=== PATIENT | male | born 1985 | race Caucasian/White ===

== ENCOUNTER 2021-07-06 05:09 | Inpatient (IN) | payer MEDICAID, SELFPAY ==
[~2021-07-06] VITALS: Ht 180.3 cm; Wt 69.7 kg
--- NOTE | 2021-07-06 06:38 | NUR ---
catering cook: patient to room from lobby.
--- NOTE | 2021-07-06 06:40 | NUR ---
TO ROOM 19. CARE ASSUMED AT THIS TIME.
--- NOTE | 2021-07-06 06:57 | NUR ---
REPORT GIVEN TO HIRAM GARCIA. CARE TRANSFERED.
[2021-07-06] MEDS ORDERED: HYDROmorphone 2 MG/ML, 1ML ONE ×4 (07:27→14:01)
[2021-07-06] MEDS ORDERED: SODIUM CHLORIDE FLUSH 10ML SYR IVF ONE (07:30)
[2021-07-06] MEDS ORDERED: HYDROmorphone 2 MG/ML, 1ML IVPush ONE (07:30)
[2021-07-06 07:44] LABS: MEAN CORPUSCULAR HEMOGLOBIN 27.7 pg (27.5-34.5); MEAN CORPUSCULAR HGB CONC 33.8 g/dL (33.2-36.2); MEAN PLATELET VOLUME 7.6 fL (7.4-10.4); PLATELET COUNT 395 x10^3/uL (130-400); RED CELL DISTRIBUTION WIDTH 14.7 % (9.4-14.8)
[2021-07-06 07:55] LABS: ALANINE AMINOTRANSFERASE 13 U/L (12-78); ALBUMIN 2.7 g/dL (3.4-5.0); ANION GAP 6 mmol/L (5-15); CALCIUM 9.1 mg/dL (8.5-10.1); CHLORIDE 101 mmol/L (98-107); CREATININE 0.57 mg/dL (0.7-1.3)
[2021-07-06 07:57] LABS: ALKALINE PHOSPHATASE 130 U/L (45-117); BILIRUBIN,TOTAL 0.8 mg/dL (0.2-1.0); TOTAL PROTEIN 8.3 g/dL (6.4-8.2)
[2021-07-06 08:15] LABS: <RBC MORPHOLOGY> NORMAL; BAND#(MANUAL) 0.93 x10^3/uL; BANDS%(MANUAL) 3 % (0-7); LYMPH#(MANUAL) 2.47 x10^3/uL (1-3.4); LYMPHS% (MANUAL) 8 % (22-44); MONOS#(MANUAL) 0.62 x10^3/uL (0.3-2.7); MONOS% (MANUAL) 2 % (2-9); SEG#(MANUAL) 26.88 x10^3/uL (1.8-6.8); SEGS% (MANUAL) 87 % (42-75)
[2021-07-06 08:16] LABS: <PLATELET ESTIMATE> ADEQUATE; <PLT MORPHOLOGY> NORMAL PLT MORPH
[2021-07-06] MEDS ORDERED: HYDROmorphone 1 MG/ML, 1ML INJ IV ONE ×2 (09:00→12:00)
[2021-07-06] MEDS ORDERED: PLEASE ENTER MEASURED WEIGHT MC SCH (09:00)
[2021-07-06] MEDS ORDERED: SODIUM CHLORIDE 0.9% 1,000ML IVBOLUS ONE ×2 (09:00→16:00)
[2021-07-06] MEDS ORDERED: VANCOMYCIN PER PHARMACY MC ONE (09:00)
[2021-07-06] MEDS ORDERED: HYDROmorphone 1 MG/ML, 1ML INJ IVPush PRN (09:00)
[2021-07-06] MEDS ORDERED: PIPERACILLIN/TAZO 3.375 GM in DEXTROSE 5% 50 ML IVPB ONE (09:00)
--- NOTE | 2021-07-06 09:09 | NUR ---
Triage edited to add accurate weight.
--- NOTE | 2021-07-06 09:23 | NUR ---
Awaiting BC draw to start abx.
--- NOTE | 2021-07-06 09:31 | NUR ---
This RN touched base with lab about BC draw. Lab back to bedside.
--- NOTE | 2021-07-06 09:50 | NUR ---
Fluids paused while abx infusing.
--- NOTE | 2021-07-06 09:53 | NUR ---
Pt to MRI.
[2021-07-06] MEDS ORDERED: SODIUM CHLORIDE FLUSH 10ML SYR IVF PRN (10:00)
[2021-07-06] MEDS ORDERED: SODIUM CHLORIDE 0.9% 1,000 ML IV ONE (10:00)
[2021-07-06 10:06] LABS: HCT (SEDRATE) 34.1 % (39.2-51.8)
[2021-07-06] MEDS ORDERED: VANCOMYCIN 1,500 MG in SODIUM CHLORIDE 0.9% 250 ML IV ONE (10:30)
[2021-07-06] MEDS ORDERED: DIAZEPAM 5 MG/ML, 2ML IV ONE (10:30)
[2021-07-06] MEDS ORDERED: DIAZEPAM 5 MG/ML, 2ML ONE (10:34)
--- NOTE | 2021-07-06 10:47 | NUR ---
Pt returned from MRI without imaging r/t claustrophobia, pt medicated per jan. Pt to MRI with all belongings, to go to room 449 after imaging complete.
--- NOTE | 2021-07-06 10:50 | NUR ---
Report to HIRAM Arnold.
[2021-07-06 11:09] LABS: AMPHETAMINE SCREEN, URINE Positive (Negative); BARBITURATE SCREEN, URINE Negative (Negative); BENZODIAZEPINE SCREEN, URINE Negative (Negative); CANNABINOID SCREEN, URINE Negative (Negative); COCAINE SCREEN, URINE Negative (Negative); METHADONE SCREEN, URINE Negative (Negative); OPIATE SCREEN, URINE Positive (Negative)
[2021-07-06] MEDS ORDERED: HYDROmorphone 1 MG/ML, 1ML INJ IM ONE (12:00)
[2021-07-06] MEDS ORDERED: ONDANSETRON ODT 4 MG PO PRN (13:30)
[2021-07-06] MEDS ORDERED: ONDANSETRON 2MG/ML, 2ML IVPush PRN (13:30)
[2021-07-06] MEDS ORDERED: VANCOMYCIN PER PHARMACY MC PRN (13:30)
[2021-07-06] MEDS ORDERED: POLYETHYLENE GLYCOL 17 GM PACKET PO PRN (13:30)
[2021-07-06] MEDS ORDERED: PHARMACOKINETIC CONSULTATION MC ONE (14:00)
[2021-07-06] MEDS: ENOXAPARIN 40 MG/0.4 ML SQ SCH (14:00)
[2021-07-06] MEDS ORDERED: PHARMACOKINETIC MONITORING MC PRN (14:00)
[2021-07-06] MEDS: HYDROmorphone 2 MG/ML, 1ML IVPush PRN ×5 (14:05→22:37)
[2021-07-06] MEDS: LACTATED RINGERS 1,000 ML IV SCH ×2 (14:06→20:10)
[2021-07-06] MEDS: PIPERACILLIN/TAZO 3.375 GM in DEXTROSE 5% 50 ML IV SCH ×2 (14:42→20:09)
[2021-07-06 14:44] VITALS: BP 113/69
[2021-07-06] MEDS: ACETAMINOPHEN 325 MG TABLET PO SCH ×2 (15:02→20:09)
[2021-07-06] MEDS ORDERED: DIPHENHYDRAMINE 50 MG/ML, 1ML ONE (15:21)
[2021-07-06] MEDS ORDERED: DIPHENHYDRAMINE 50 MG/ML, 1ML IVPush ONE (15:30)
[2021-07-06] MEDS ORDERED: methylPREDNISolone SOD SUCC 40 MG/ML IV ONE (15:30)
[2021-07-06] MEDS ORDERED: OMNIPAQUE 350 MG/ML, 100ML BOTTLE ONE (16:24)
[2021-07-06 19:33] VITALS: BP 113/65
[2021-07-06] MEDS ORDERED: BUPRENORPHINE/NALOXONE 8-2MG SL SCH (22:00)
[2021-07-06] MEDS: VANCOMYCIN 1,200 MG in SODIUM CHLORIDE 0.9% 250 ML IV SCH (23:49)
[2021-07-07 01:30] VITALS: BP 110/67
[2021-07-07] MEDS: PIPERACILLIN/TAZO 3.375 GM in DEXTROSE 5% 50 ML IV SCH ×4 (02:54→22:47)
[2021-07-07] MEDS: LACTATED RINGERS 1,000 ML IV SCH ×3 (03:00→21:09)
[2021-07-07] MEDS: HYDROmorphone 2 MG/ML, 1ML IVPush PRN ×5 (03:00→21:09)
[2021-07-07 05:26] LABS: MEAN CORPUSCULAR HEMOGLOBIN 27.5 pg (27.5-34.5); MEAN CORPUSCULAR HGB CONC 33.2 g/dL (33.2-36.2); MEAN PLATELET VOLUME 7.8 fL (7.4-10.4); PLATELET COUNT 371 x10^3/uL (130-400)
[2021-07-07 05:45] LABS: CHLORIDE 105 mmol/L (98-107)
[2021-07-07 05:52] LABS: ALANINE AMINOTRANSFERASE 11 U/L (12-78); ALBUMIN 2.1 g/dL (3.4-5.0); ALKALINE PHOSPHATASE 123 U/L (45-117); ANION GAP 7 mmol/L (5-15); BILIRUBIN,TOTAL 0.5 mg/dL (0.2-1.0); CALCIUM 9.1 mg/dL (8.5-10.1); CREATININE 0.47 mg/dL (0.7-1.3); TOTAL PROTEIN 7.6 g/dL (6.4-8.2)
[2021-07-07 06:03] LABS: BAND#(MANUAL) 1.57 x10^3/uL; BANDS%(MANUAL) 6 % (0-7); LYMPH#(MANUAL) 1.31 x10^3/uL (1-3.4); LYMPHS% (MANUAL) 5 % (22-44); METAMYELOCYTES# (MANUAL) 0.26 x10^3/uL (0-0); METAMYELOCYTES% (MANUAL) 1 % (0-1); SEG#(MANUAL) 22.97 x10^3/uL (1.8-6.8); SEGS% (MANUAL) 88 % (42-75)
[2021-07-07 06:04] LABS: <RBC MORPHOLOGY> NORMAL
[2021-07-07 06:05] LABS: <PLATELET ESTIMATE> ADEQUATE; <PLT MORPHOLOGY> NORMAL PLT MORPH
[2021-07-07] MEDS: SENNA/DOCUSATE TABLET PO SCH (08:19)
[2021-07-07] MEDS: ACETAMINOPHEN 325 MG TABLET PO SCH ×3 (08:19→21:08)
[2021-07-07 08:29] VITALS: BP 117/65
[2021-07-07] MEDS: VANCOMYCIN 1,200 MG in SODIUM CHLORIDE 0.9% 250 ML IV SCH (13:14)
[2021-07-07 13:20] VITALS: BP 105/61
[2021-07-07] MEDS: ENOXAPARIN 40 MG/0.4 ML SQ SCH (14:00)
[2021-07-07] MEDS ORDERED: CHLORHEXIDINE 15 ML UDC ONE (14:46)
[2021-07-07] MEDS ORDERED: CHLORHEXIDINE 15 ML UDC PO ONE (15:00)
[2021-07-07] MEDS ORDERED: MIDAZOLAM 1 MG/ML, 2ML ONE (15:28)
[2021-07-07] MEDS ORDERED: FENTANYL PF 250 MCG/5ML ONE ×2 (15:28→16:28)
[2021-07-07] MEDS ORDERED: LIDOCAINE-MPF 2% ,5ML ONE (15:30)
[2021-07-07] MEDS ORDERED: EPINEPHRINE 1 MG/ML, 1ML ONE (15:45)
[2021-07-07] MEDS ORDERED: BUPIVACAINE/PF 0.5% ONE (15:45)
[2021-07-07] MEDS ORDERED: KETOROLAC 30 MG/1 ML ONE (16:25)
[2021-07-07] MEDS ORDERED: ONDANSETRON 2MG/ML, 2ML ONE (16:26)
[2021-07-07] MEDS ORDERED: PROPOFOL 10 MG/ML, 20ML ONE (16:26)
[2021-07-07] MEDS ORDERED: DEXAMETHASONE 4 MG/ML, 1ML ONE (16:26)
[2021-07-07] MEDS ORDERED: VANCOMYCIN 1,000 MG ONE (16:41)
[2021-07-07] MEDS ORDERED: ACETAMINOPHEN 650 MG/20.3 ML UDC ONE (17:38)
[2021-07-07] MEDS ORDERED: HYDROmorphone 2 MG/ML, 1ML ONE ×2 (17:38→17:54)
[2021-07-07] MEDS ORDERED: OXYcodone 5 MG/5 ML ORAL.SOL UDC ONE (17:38)
[2021-07-07] MEDS: HYDROmorphone 1 MG/ML, 1ML INJ IVPush PRN ×5 (17:39→18:02)
[2021-07-07] MEDS ORDERED: ACETAMINOPHEN 325 MG TABLET PO PRN (18:00)
[2021-07-07] MEDS ORDERED: OXYcodone 5 MG/5 ML ORAL.SOL UDC PO PRN (18:00)
[2021-07-07] MEDS ORDERED: PROMETHAZINE 25 MG/ML, 1ML IVPush PRN (18:00)
[2021-07-07] MEDS ORDERED: FENTANYL PF 100 MCG/2ML IV PRN (18:00)
[2021-07-07 18:15] VITALS: BP 98/56
[2021-07-08 00:01] VITALS: BP 104/61
[2021-07-08] MEDS: VANCOMYCIN 1,200 MG in SODIUM CHLORIDE 0.9% 250 ML IV SCH ×3 (00:19→20:06)
[2021-07-08] MEDS: HYDROmorphone 2 MG/ML, 1ML IVPush PRN ×6 (00:51→22:51)
[2021-07-08 03:52] VITALS: BP 110/59
[2021-07-08] MEDS: PIPERACILLIN/TAZO 3.375 GM in DEXTROSE 5% 50 ML IV SCH ×4 (05:00→22:21)
[2021-07-08 07:15] VITALS: BP 115/69
[2021-07-08] MEDS: ACETAMINOPHEN 325 MG TABLET PO SCH ×3 (07:31→21:00)
[2021-07-08] MEDS: OXYcodone/APAP 5/325MG TABLET PO PRN ×4 (08:29→21:22)
[2021-07-08] MEDS: SENNA/DOCUSATE TABLET PO SCH (08:29)
[2021-07-08] MEDS: LACTATED RINGERS 1,000 ML IV SCH (08:29)
[2021-07-08] MEDS: BUPRENORPHINE HCL 2 MG TAB.SUBL SL SCH ×3 (10:52→21:44)
[2021-07-08] MEDS: NICOTINE 14MG/24 HR PATCH.TD24 TD SCH (10:53)
[2021-07-08 11:48] LABS: BASOPHILS % (AUTO) 0 % (0-1); EOSINOPHILS % (AUTO) 0 % (1-7); LYMPHOCYTES % (AUTO) 17 % (22-44); MEAN CORPUSCULAR HEMOGLOBIN 27.2 pg (27.5-34.5); MEAN CORPUSCULAR HGB CONC 32.9 g/dL (33.2-36.2); MEAN PLATELET VOLUME 7.4 fL (7.4-10.4); MONOCYTES % (AUTO) 5 % (2-9); NEUTROPHILS % (AUTO) 77 % (42-75); PLATELET COUNT 315 x10^3/uL (130-400); RED BLOOD COUNT 3.87 x10^6/uL (4.38-5.82)
[2021-07-08 11:59] LABS: ALANINE AMINOTRANSFERASE 9 U/L (12-78); ANION GAP 5 mmol/L (5-15); CALCIUM 8.2 mg/dL (8.5-10.1); CHLORIDE 108 mmol/L (98-107)
[2021-07-08 12:01] LABS: ALKALINE PHOSPHATASE 100 U/L (45-117); BILIRUBIN,TOTAL 0.3 mg/dL (0.2-1.0); CREATININE 0.58 mg/dL (0.7-1.3); TOTAL PROTEIN 6.5 g/dL (6.4-8.2)
[2021-07-08 12:27] VITALS: BP 111/61
[2021-07-08] MEDS: ENOXAPARIN 40 MG/0.4 ML SQ SCH (12:38)
[2021-07-08 20:03] VITALS: BP 101/61
[2021-07-08] MEDS ORDERED: BUPRENORPHINE HCL 2 MG TAB.SUBL SL SCH (21:00)
[2021-07-09 00:34] VITALS: BP 112/60
[2021-07-09] MEDS: HYDROmorphone 2 MG/ML, 1ML IVPush PRN ×2 (00:40→04:00)
[2021-07-09] MEDS: VANCOMYCIN 1,200 MG in SODIUM CHLORIDE 0.9% 250 ML IV SCH ×2 (03:31→12:23)
[2021-07-09] MEDS: PIPERACILLIN/TAZO 3.375 GM in DEXTROSE 5% 50 ML IV SCH ×3 (05:06→16:49)
[2021-07-09 06:33] LABS: BASOPHILS % (AUTO) 1 % (0-1); EOSINOPHILS % (AUTO) 1 % (1-7); LYMPHOCYTES % (AUTO) 34 % (22-44); MEAN CORPUSCULAR HEMOGLOBIN 27.9 pg (27.5-34.5); MEAN CORPUSCULAR HGB CONC 33.5 g/dL (33.2-36.2); MEAN PLATELET VOLUME 8.3 fL (7.4-10.4); MONOCYTES % (AUTO) 6 % (2-9); NEUTROPHILS % (AUTO) 59 % (42-75); PLATELET COUNT 252 x10^3/uL (130-400); RED BLOOD COUNT 4.13 x10^6/uL (4.38-5.82); RED CELL DISTRIBUTION WIDTH 14.6 % (9.4-14.8)
[2021-07-09 06:37] LABS: ANION GAP 6 mmol/L (5-15); CALCIUM 8.7 mg/dL (8.5-10.1); CHLORIDE 108 mmol/L (98-107); CREATININE 0.57 mg/dL (0.7-1.3)
[2021-07-09] MEDS: ACETAMINOPHEN 325 MG TABLET PO SCH ×3 (08:13→20:05)
[2021-07-09] MEDS: BUPRENORPHINE HCL 2 MG TAB.SUBL SL SCH ×3 (08:29→20:05)
[2021-07-09] MEDS: SENNA/DOCUSATE TABLET PO SCH (08:29)
[2021-07-09] MEDS: OXYcodone/APAP 5/325MG TABLET PO PRN ×3 (08:30→20:05)
[2021-07-09 09:42] VITALS: BP 110/69
[2021-07-09] MEDS ORDERED: HYDROmorphone 2 MG/ML, 1ML IM PRN (10:30)
[2021-07-09] MEDS: ENOXAPARIN 40 MG/0.4 ML SQ SCH (11:09)
[2021-07-09] MEDS: NICOTINE 14MG/24 HR PATCH.TD24 TD SCH (11:09)
[2021-07-09 12:17] VITALS: BP 107/62
[2021-07-09 18:55] VITALS: BP 101/63
[2021-07-09] MEDS: CEFAZOLIN PMX 1GM/50ML 50 ML IV SCH (19:21)
[2021-07-10 01:46] VITALS: BP 115/64
[2021-07-10] MEDS: OXYcodone/APAP 5/325MG TABLET PO PRN ×3 (01:46→10:46)
[2021-07-10] MEDS: CEFAZOLIN PMX 1GM/50ML 50 ML IV SCH ×2 (03:21→10:58)
[2021-07-10 06:28] VITALS: BP 113/72
[2021-07-10] MEDS: BUPRENORPHINE HCL 2 MG TAB.SUBL SL SCH (08:55)
[2021-07-10] MEDS: NICOTINE 14MG/24 HR PATCH.TD24 TD SCH (08:56)
[2021-07-10] MEDS: SENNA/DOCUSATE TABLET PO SCH (08:59)
[2021-07-10] MEDS: ACETAMINOPHEN 325 MG TABLET PO SCH (08:59)
[2021-07-10] MEDS ORDERED: CEPH-376 PO (09:47)
[2021-07-10] MEDS: ENOXAPARIN 40 MG/0.4 ML SQ SCH (10:58)
[2021-07-10 12:20] VITALS: BP 117/70
== END 2021-07-10 12:42 | disposition home or self-care (01) | DRG 854 ==
LOC: ED 11:35 → 4NE 13:03
PROVIDERS: ADMIT Family Medicine; ATTEND Family Medicine
PROC: 0J9G0ZZ Drainage of Right Lower Arm Subcutaneous Tissue and Fascia, Open Approach (ICD-10-PCS; 2021-07-07)
PROC: 0J9D0ZZ Drainage of Right Upper Arm Subcutaneous Tissue and Fascia, Open Approach (ICD-10-PCS; 2021-07-07)
PROC: 3E1038Z Irrigation of Skin and Mucous Membranes using Irrigating Substance, Percutaneous Approach (ICD-10-PCS; 2021-07-07)
PROC: 0JBG0ZZ Excision of Right Lower Arm Subcutaneous Tissue and Fascia, Open Approach (ICD-10-PCS; principal; 2021-07-07 16:00)
DX: A41.1 Sepsis due to other specified staphylococcus (principal); L02.413 Cutaneous abscess of right upper limb; L03.113 Cellulitis of right upper limb; B95.61 Methicillin susceptible Staphylococcus aureus infection as the cause of diseases classified elsewhere; D64.9 Anemia, unspecified; F11.10 Opioid abuse, uncomplicated; F15.10 Other stimulant abuse, uncomplicated; Z63.8 Other specified problems related to primary support group; F17.200 Nicotine dependence, unspecified, uncomplicated; Z20.822 Contact with and (suspected) exposure to COVID-19; Z91.041 Radiographic dye allergy status; F41.9 Anxiety disorder, unspecified; Z71.6 Tobacco abuse counseling
CPT/HCPCS: 36415; 96374; 99285; J3490; S0020; 80048; 80053; 80202; 80307; 83605; 85025; 85651; 86140; 87040; 87070; 87075; 87147; 87186; 87205; 87635; G0378; J0171; J0690; J1100; J1170; J1650; J1885; J2250; J2405; J2543; J2704; J3010; J3360; J3370; Q9967; J1200; J2920; J7030; J7050; J7120